=== PATIENT | female | born 1960 | race Caucasian/White ===

== ENCOUNTER 2019-03-28 11:17 | Outpatient (CLI) | payer OTHER ==
[~2019-03-28 11:17] MED LIST: IBUPROFEN800 MG PO; SEPTRA DS TABLE1 TAB PO
== END 2019-03-28 11:38 | disposition home or self-care (01) ==
LOC: SONOGRAMA 11:17
DX: N60.11 Diffuse cystic mastopathy of right breast (principal); N60.12 Diffuse cystic mastopathy of left breast; R92.1 Mammographic calcification found on diagnostic imaging of breast

== ENCOUNTER 2024-03-06 12:37 | Emergency (ER) | payer OTHER ==
[~2024-03-06] VITALS: Ht 162.6 cm; Wt 56.7 kg
[2024-03-06] MEDS ORDERED: IRBESARTAN75 MG PO (13:09)
== END 2024-03-06 18:16 | disposition home or self-care (01) ==
LOC: ER 12:38
DX: M25.531 Pain in right wrist (principal); S69.81XA Other specified injuries of right wrist, hand and finger(s), initial encounter; W18.39XA Other fall on same level, initial encounter; Y93.89 Activity, other specified; Y92.018 Other place in single-family (private) house as the place of occurrence of the external cause; I10 Essential (primary) hypertension